=== PATIENT | female | born 1990 | race Caucasian/White ===

== ENCOUNTER 2016-05-03 08:18 | Inpatient (IN) | payer MEDICARE, OTHER ==
[~2016-05-03] VITALS: Ht 160 cm; Wt 77.8 kg
[~2016-05-03 08:18] MED LIST: IBUP800T25 PO; PERCOCET PO; PRENAT PO
[2016-05-03] MEDS ORDERED: METHYLERGONOVINE 0.2 MG INJ IM PRN ×2 (08:30→14:30)
[2016-05-03] MEDS ORDERED: CEFAZOLIN 2 GM/50 ML (PMX) 50 ML IV SCH (08:30)
[2016-05-03] MEDS ORDERED: MISOPROSTOL 200 MCG TAB PR PRN ×2 (08:30→14:30)
[2016-05-03] MEDS ORDERED: OXYTOCIN 30 UNITS/LR 500 ML IV PRN ×2 (08:30→14:30)
[2016-05-03] MEDS ORDERED: CARBOPROST 250 MCG INJ IM PRN ×2 (08:30→14:30)
[2016-05-03] MEDS ORDERED: OXYTOCIN 30 UNITS/LR 500 ML IV SCH (08:30)
[2016-05-03] MEDS: LACTATED RINGER'S 1,000 ML IV SCH ×4 (08:51→22:02)
[2016-05-03 09:12] VITALS: Ht 160 cm; Wt 77.8 kg
[2016-05-03 09:13] VITALS: BP 119/56; PULSE 71; RESP 18
[2016-05-03 09:16] LABS: BASOPHILS % 0.3 % (0.0-2.0); EOSINOPHILS # 0.1 10^3/ul (0.0-0.5); EOSINOPHILS % 0.9 % (0.0-7.0); HEMATOCRIT 31.6 % (37.0-47.0); HEMOGLOBIN 10.6 g/dl (12.0-16.0); LYMPHOCYTES # 3.3 10^3/ul (0.8-2.9); LYMPHOCYTES % 26.7 % (15.0-51.0); MEAN CORPUSCULAR HEMOGLOBIN 30.7 pg (29.0-33.0); MEAN CORPUSCULAR HGB CONC 33.6 g/dl (32.0-37.0); MEAN CORPUSCULAR VOLUME 91.3 fl (82.0-101.0); MEAN PLATELET VOLUME 7.6 fl (7.4-10.4); MONOCYTE # 0.7 10^3/ul (0.3-0.9); MONOCYTES % 5.8 % (0.0-11.0); NEUTROPHIL # 8.1 10^3/ul (1.6-7.5); NEUTROPHILS % 66.3 % (39.0-77.0); PLATELET COUNT 367 10^3/UL (140-440); RED BLOOD COUNT 3.46 10^6/ul (4.20-5.40); RED CELL DISTRIBUTION WIDTH 14.5 % (11.5-14.5); UNCORRECTED WBC 12.3 10^3/ul (4.8-10.8); WHITE BLOOD COUNT 12.3 10^3/ul (4.8-10.8)
[2016-05-03 09:17] LABS: CONDITION 1
[2016-05-03 09:19] LABS: INR 0.97; PARTIAL THROMBOPLASTIN TIME 27.5 Sec (25.0-35.0); PROTIME 12.9 Sec (12.2-14.2)
[2016-05-03] MEDS ORDERED: FENTAnyl 50 MCG/ML VIAL ONE (09:58)
[2016-05-03] MEDS ORDERED: morphine SULFATE/PF (10 MG/10 ML) INJ ONE (09:58)
[2016-05-03] MEDS ORDERED: PHENYLephrine (100 MCG/ML) 5ML SYG ONE (10:39)
[2016-05-03] MEDS ORDERED: ZOLPIDEM 5 MG TAB PO PRN (11:00)
[2016-05-03] MEDS ORDERED: DIPHENHYDRAMINE 50 MG INJ IV PRN (11:00)
[2016-05-03] MEDS ORDERED: ONDANSETRON 4 MG INJ IV PRN (11:00)
[2016-05-03] MEDS ORDERED: HYDROmorphONE 1 MG/ML SYG IV PRN ×2 (11:00)
[2016-05-03] MEDS ORDERED: NALOXONE (0.4 MG/ML) INJ IV PRN (11:00)
[2016-05-03 11:07] LABS: BARBITURATES Negative (NEGATIVE); BENZODIAZEPINES Negative (NEGATIVE); OPIATES Negative (NEGATIVE)
[2016-05-03] MEDS ORDERED: OXYTOCIN 30 UNITS/LR 500 ML IV ONE (11:07)
[2016-05-03] MEDS ORDERED: DEXAMETHASONE 4 MG/ML 1 ML INJ ONE (11:07)
[2016-05-03] MEDS ORDERED: ONDANSETRON 4 MG INJ ONE (11:07)
[2016-05-03 11:09] LABS: COCAINE Negative (NEGATIVE)
[2016-05-03 11:10] LABS: CANNABINOIDS Positive (NEGATIVE)
[2016-05-03] MEDS: NICOTINE (14 MG/24 HR) PATCH TRANSDERM SCH (11:55)
[2016-05-03] MEDS: KETOROLAC 30 MG INJ IV PRN ×2 (13:08→18:34)
[2016-05-03] MEDS ORDERED: OXYCODONE/ACETAMINOPHEN (5/325) TAB PO PRN (14:30)
[2016-05-03 14:40] VITALS: BP 113/58; PULSE 54; RESP 18
[2016-05-03 16:00] VITALS: BP 100/55; PULSE 48; RESP 19
[2016-05-03 18:02] VITALS: BP 120/64; PULSE 53; RESP 18
[2016-05-03 19:45] VITALS: BP 114/66; PULSE 66; RESP 18
[2016-05-03 23:56] VITALS: BP 121/68; PULSE 67; RESP 18
[2016-05-04] MEDS: KETOROLAC 30 MG INJ IV PRN ×2 (00:13→08:17)
[2016-05-04] MEDS: LACTATED RINGER'S 1,000 ML IV SCH (03:47)
[2016-05-04 04:15] VITALS: PULSE 78; RESP 18
[2016-05-04 08:00] VITALS: BP 107/59; PULSE 57; RESP 16
[2016-05-04] MEDS: NICOTINE (14 MG/24 HR) PATCH TRANSDERM SCH (08:20)
[2016-05-04 09:53] LABS: BASOPHILS % 0.2 % (0.0-2.0); EOSINOPHILS # 0.1 10^3/ul (0.0-0.5); EOSINOPHILS % 0.5 % (0.0-7.0); HEMATOCRIT 27.1 % (37.0-47.0); HEMOGLOBIN 9.1 g/dl (12.0-16.0); LYMPHOCYTES # 4.2 10^3/ul (0.8-2.9); LYMPHOCYTES % 27.7 % (15.0-51.0); MEAN CORPUSCULAR HEMOGLOBIN 30.7 pg (29.0-33.0); MEAN CORPUSCULAR HGB CONC 33.7 g/dl (32.0-37.0); MEAN CORPUSCULAR VOLUME 91.1 fl (82.0-101.0); MEAN PLATELET VOLUME 7.6 fl (7.4-10.4); MONOCYTES % 6.3 % (0.0-11.0); NEUTROPHIL # 9.8 10^3/ul (1.6-7.5); NEUTROPHILS % 65.3 % (39.0-77.0); PLATELET COUNT 316 10^3/UL (140-440); RED BLOOD COUNT 2.97 10^6/ul (4.20-5.40); RED CELL DISTRIBUTION WIDTH 14.6 % (11.5-14.5); UNCORRECTED WBC 15.1 10^3/ul (4.8-10.8); WHITE BLOOD COUNT 15.1 10^3/ul (4.8-10.8)
[2016-05-04 10:12] LABS: CONDITION 1; LH ANALYZER COMMENTS 1
[2016-05-04] MEDS: OXYCODONE/ACETAMINOPHEN (5/325) TAB PO PRN ×3 (12:36→20:49)
[2016-05-04] MEDS: IBUPROFEN 800 MG TAB PO SCH ×2 (13:59→21:54)
[2016-05-04 16:08] VITALS: BP 110/61; PULSE 65; RESP 16
--- NOTE | 2016-05-04 17:42 | QN ---
Documentation Comment POD #1 s/p repeat . No c/o. No flatus but has had a milkshake and soup w/o a problem. No N/V. T=98.1 BP 110/61. Hgb 9.1. WBC 15.1. Plts 326K. Abdomen soft NT ND. Incision C/D/I. Lochia moderate. Ext NT, 1+ edema. P: Cont. care, advance diet. DepoProvera 150 mg IM. MARJORIE KOENIG MD May 04, 2016 17:42
--- NOTE | 2016-05-04 17:51 | PREOPHP ---
DATE OF ADMISSION: 05/03/2016 HISTORY OF PRESENT ILLNESS: Patient is a 25-year-old 5, para 3, AB 1 with a due date of . Estimated date of confinement 39 weeks. Patient is giving her baby up for adoption. She i s from [place], [place] and has come out here just for the end of her care and for delive ry as the adopting mother is from [place]. Patient had minimal care before she came ou t here. She went a couple of times to [facility], got an ultrasound, and some other place wh ere she had just paid for ultrasound [facility]. That is it. I did deliver her last baby 2 years ago with a different adopting mom. Patient has had 3 previous sections, all without complications, all at term. PAST MEDICAL HISTORY: Otherwise negative. PAST SURGICAL HISTORY: The 3 previous C-sections only, and her wisdom teeth out. ALLERGIES: NO KNOWN DRUG ALLERGIES. SOCIAL HISTORY: Patient smokes a couple cigarettes a day and does smoke marijuana on occasion. MEDICATIONS: Only vitamins. PHYSICAL EXAMINATION: VITAL SIGNS: Patient is 5 feet 3 inches, 167 pounds. HEART: Regular rate and rhythm. LUNGS: Clear to auscultation. ABDOMEN: Soft, nontender, gravid. PELVIC: Cervical exam deferred. EXTREMITIES: Nontender, 1+ edema. LABORATORY WORK: Blood type O positive, antibody screen negative, serology nonreactive, ru agnes immune, hepatitis B surface antigen negative, hepatitis C antibody negative, HIV negative. Go norrhea and chlamydia cultures were negative. Platelets are normal. MCV 90. TSH was normal. She had a counseled genetic testing done previously, which was all negative. 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 ASSESSMENT: 1. Intrauterine at 39 weeks. 2. Previous section x3, for repeat section. 3. Baby for adoption. PLAN: Repeat low transverse section. Dictated By: MARJORIE NAYAK/HAMLET Conf#: [id number] DID#: [id number]
--- NOTE | 2016-05-04 17:56 | OPR ---
DATE OF OPERATION: 05/03/2016 PREOPERATIVE DIAGNOSES: 1. Intrauterine at 39 weeks. 2. Previous section x3, for repeat section. POSTOPERATIVE DIAGNOSES: 1. Intrauterine at 39 weeks. 2. Previous section x3, for repeat section. 3. Status post delivery of a viable male infant weighing 3475 g, or 7 pounds 11 ounces, with scores of 9 and 9. SURGEON: Sourav Pickens M.D. STEEL HANDLER: Dr. Linn. ANESTHESIA: Dr. Madden with a spinal block. ESTIMATED BLOOD LOSS: 500 mL. COMPLICATIONS: None. PROCEDURE: The patient was brought to the operating room, placed on the operating room table, and w as set up for a spinal block. She was then laid in the supine position. The Olea catheter was luisito jonathan, and she was prepped and draped in the usual sterile fashion. A Pfannenstiel incision was made at the site of the old scar, with using a knife through the skin an d subcutaneous tissue down to the level of the fascia. Fascia was incised and extended bilaterally using Bovie cautery and scissors. The superior edge of the fascia was grasped with Radha clamps, a nd the rectus muscles were from the overlying fascia using blunt dissection and Bovie caut luciano. This was repeated at the lower edge of the incision as well. The rectus muscles were separate d midline using a Chloe clamp, and the anterior peritoneum was bluntly entered using the surgeon's f ingers. The incision was then stretched open with hands. Bladder blade and Garrett retractor we re placed in the incision. The lower uterine segment was incised with a knife and entered using a K aidan clamp and then stretched open with hands. Bulging bag was ruptured with the Chloe clamp, and t here was a trace tinge of meconium in fluid. Baby was breech. Feet were delivered through the inci magdalene, and then the rest of the legs up to the bottom. Baby was flipped over, delivered up to the oulder blades. Each arm was delivered, and then the head was easily delivered. The mouth and nares were bulb suctioned. The cord was doubly clamped and cut, and the baby was handed off the field to be brought to the warmer with the respiratory team in attendance. Cord blood was obtained. Placenta was manually extracted. The uterus was externalized, wrapped in a moist lap, and a dry lap was used to clean the interior of the uterus. The incision was closed in 2 layers using #1 chromic in a running locking stitch with excellent tissue approximation and hemostasis. Tubes and ovaries were examined and noted to be normal. The pelvis was irrigated well. The uterus was replaced back into the abdomen. Incision examined again and noted to be dry. The anterior peritoneum was then cl osed using 2-0 chromic in a running stitch. The rectus muscles were brought back together at midlin e with the same stitch. Underbelly of the fascia was examined and noted to be dry. The fascia was then closed using 0 Vicryl suture in a running stitch from each lateral edge to midline, with overla p at the midline. Subcutaneous tissue was irrigated well. Cautery applied where needed for hemosta sis. The subcutaneous layer was closed using 2-0 chromic in a running stitch. The skin was then cl osed with 3-0 Monocryl in a subcuticular stitch. Steri-Strips with Mastisol were placed, and a pres sure dressing was applied overall. The patient tolerated the procedure very well and was brought to the recovery room in excellent cond ition. Dictated By: SOURAV NAYAK/HAMLET Conf#: [id number] DID#: [id number]
[2016-05-04] MEDS ORDERED: MEDROXYPROGESTERONE 150 MG INJ SYG IM ONE (18:00)
[2016-05-04 19:45] VITALS: BP 109/60; PULSE 77; RESP 18
[2016-05-05] MEDS: OXYCODONE/ACETAMINOPHEN (5/325) TAB PO PRN ×5 (01:09→23:43)
[2016-05-05 04:10] VITALS: BP 111/65; PULSE 68; RESP 18
[2016-05-05] MEDS: IBUPROFEN 800 MG TAB PO SCH ×3 (05:59→22:07)
[2016-05-05 08:00] VITALS: BP 104/63; PULSE 62; RESP 16
[2016-05-05] MEDS: NICOTINE (14 MG/24 HR) PATCH TRANSDERM SCH (08:03)
[2016-05-05] MEDS ORDERED: INFLUENZA VIRUS VACCINE 0.5 ML SYG IM* ONE (11:00)
[2016-05-05 16:24] VITALS: BP 114/68; PULSE 62; RESP 18
--- NOTE | 2016-05-05 19:30 | PD.PPDC ---
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 Condition Patient Condition: Good Diet Diet: Resume Regular Diet Activity/Restrictions Activity: Bedrest May be up to bathroom May be up for meals May Shower Restrictions: No Exercising No Lifting No Driving Minimize Walking Minimize Stair-climbing No Sexual Activity No Tampons, douche Wound/Drain Care Instructions Wound/Drain Care Instructions: Remove Steri Strips in 2 weeks Keep clean and dry Follow-up Follow-up with Physician: 2, Week/Weeks Return to clinic for SALES OPERATIONS COORDINATOR Instructions: Fever greater than 101 Chills Worsening abdominal pain Excessive Vaginal Bleeding OB Instructions: Breast Tenderness Depression Surgical Instructions: Incisional Drainage Incisional Redness MARJORIE KOENIG MD May 05, 2016 19:30
--- NOTE | 2016-05-05 19:33 | DS ---
Date/Time of Note Date/Time of Note DATE: 05/05/16 TIME: 19:31 Obstetrical Discharge Record Final Diagnosis Final Diagnosis: Term delivered Other Final Diagnosis Baby for adoption. Section Section: Repeat Complications Other (Minimal care.) Augmentation: No Induction: No Condition on Discharge Physical Assessment Last Vitals: T=98.4 BP 118/64 Voiding: Yes Bowel Movement: No Breast: Soft, non-tender Fundus: Firm Abdomen and Incision: Incision intact and dry. Calf Tenderness: No Patient Condition: Good MARJORIE KOENIG MD May 05, 2016 19:33
[2016-05-05 20:15] VITALS: BP 129/75; PULSE 79; RESP 18
[2016-05-06 04:35] VITALS: BP 107/55; PULSE 62; RESP 18
[2016-05-06] MEDS: IBUPROFEN 800 MG TAB PO SCH (06:09)
[2016-05-06 08:00] VITALS: BP 134/72; PULSE 72; RESP 18
[2016-05-06] MEDS: OXYCODONE/ACETAMINOPHEN (5/325) TAB PO PRN (08:04)
[2016-05-06] MEDS: NICOTINE (14 MG/24 HR) PATCH TRANSDERM SCH (08:04)
== END 2016-05-06 13:42 | disposition home or self-care (01) | DRG 766 ==
LOC: L-D 08:18 → PP1 15:13
PROVIDERS: ADMIT Obstetrics & Gynecology; ATTEND Obstetrics & Gynecology
PROC: 10D00Z1 Extraction of Products of Conception, Low, Open Approach (ICD-10-PCS; principal; 2016-05-03 10:00)
DX: O34.211 Maternal care for low transverse scar from previous cesarean delivery (principal); O32.1XX0 Maternal care for breech presentation, not applicable or unspecified; Z3A.39 39 weeks gestation of pregnancy; Z37.0 Single live birth
CPT/HCPCS: 80307; 85025; 85610; 85730; 86592; 86850; 86900; 86901; 86920; 87340; 90686; 94760; 99464; J0690; J1100; J1170; J1200; J1885; J2274; J2370; J2405; J2590; J3010; J7120

== ENCOUNTER 2018-02-10 05:30 | Inpatient (IN) | END 2018-02-12 14:10 | disposition home or self-care (01) | DRG 788 ==